=== PATIENT | male | born 1960 | race Hispanic/Latino ===

== ENCOUNTER 2017-09-01 07:30 | Day surgery (SDC) | payer MEDICARE ==
[2017-08-25 11:33] VITALS: BMI 29.4
[2017-09-01] MEDS ORDERED: Propofol 10 mg/ml Inj (20 ML) ONE ×2 (08:46→09:02)
[2017-09-01] MEDS ORDERED: Sodium Chloride 0.9% 1,000 ML IV SCH (09:30)
[2017-09-01 09:44] VITALS: RESP 16
[2017-09-01 10:02] VITALS: PULSE 64; O2SAT 98
[2017-09-01 10:19] VITALS: BP 140/80; TEMP 98
== END 2017-09-01 10:50 | disposition home or self-care (01) ==
LOC: ENDO 07:30
PROVIDERS: ATTEND Internal Medicine Gastroenterology
DX: Z12.11 Encounter for screening for malignant neoplasm of colon (principal); K57.30 Diverticulosis of large intestine without perforation or abscess without bleeding; K64.8 Other hemorrhoids
CPT/HCPCS: 45378; J2704; J7040

== ENCOUNTER 2017-10-06 07:57 | Day surgery (SDC) | payer MEDICARE ==
[2017-09-29 14:40] VITALS: BMI 30.1
[2017-10-06] MEDS ORDERED: Propofol 10 mg/ml Inj (20 ML) ONE (08:27)
[2017-10-06] MEDS ORDERED: Sodium Chloride 0.9% 1,000 ML IV SCH (09:00)
[2017-10-06 09:37] VITALS: PULSE 61; RESP 19; TEMP 98; O2SAT 98
[2017-10-06 09:53] VITALS: BP 138/82
== END 2017-10-06 10:06 | disposition home or self-care (01) ==
LOC: ENDO 07:57
PROVIDERS: ATTEND Internal Medicine Gastroenterology
DX: K21.0 Gastro-esophageal reflux disease with esophagitis (principal); K29.70 Gastritis, unspecified, without bleeding; K29.80 Duodenitis without bleeding; K22.10 Ulcer of esophagus without bleeding
CPT/HCPCS: 43239; 88305; 88342; J2704; J7040 ×2